=== PATIENT | female | born 1995 | race Caucasian/White ===

== ENCOUNTER 2016-07-24 17:57 | Emergency (ER) | payer SELFPAY ==
[~2016-07-24] VITALS: Ht 170.2 cm; Wt 67.7 kg
[2016-07-24 18:27] VITALS: BP 107/66; PULSE 90; RESP 18; TEMP 99.1; O2SAT 100
[2016-07-24] MEDS ORDERED: IBUPROFEN 800 MG TAB PO ONE (19:30)
--- NOTE | 2016-07-24 19:30 | PD ---
HPI Chief Complaint: ENT Complaint Time Seen by Provider: 19:25 Travel History International Travel<30 days: No Contact w/Intl Traveler<30days: No Traveled to known affect area: No History of Present Illness HPI Patient is a 21-year-old female chief sore throat. Present for 2 days. Pain with swallowing but denies inability to swallow or clear secretions. No difficulty breathing or dyspnea. She's had a slight dry cough and nasal congestion as well. She is has a frontal headache. Ibuprofen has helped. MAXIMUM TEMPERATURE yesterday was 101.0 Fahrenheit which responded to ibuprofen. She has not taken any antipyretics today. She denies any neck pain or stiffness. She denies any abdominal pain. Cough is dry and nonproductive. She denies wheezing. She denies current . She has been fatigued and endorses myalgias, did not receive influenza vaccine this year. PFSH Past Medical History Hx Anticoagulant Therapy: No Asthma: Yes Cardiovascular Problems: No Chemotherapy: No Cerebrovascular Accident: No Diabetes: No Diminished Hearing: No Respiratory: No Integumentary: Yes Immunizations Current: Yes Tetanus Vaccination: > 5 Years Influenza Vaccination: No ?: Not LMP: 07-09-16 : 0 Past Surgical History Surgical History: No Previous Surgery Hysterectomy: No Social History Alcohol Use: Yes (QOD) Tobacco Use: Yes (1/2) Substance Use: No Allergies-Medications (Allergen,Severity, Reaction): Coded Allergies: No Known Allergies (Verified , 07/24/16) Reported Meds & Prescriptions Reported Meds & Active Scripts Active Tessalon Perles (Benzonatate) 100 Mg Cap 100-200 Mg PO TID PRN Magic Mouthwash Pediatric/Adult Liq (Lidocaine/Diphenhydr/Alum/Mg/Simeth) 60 Ml Susp 5-10 Ml SWISH-SPIT ACHS PRN Please makes 40 mL each: 2% viscous lidocaine, liquid diphenhydramine and Maalox liquid Review of Systems Except as stated in HPI: all other systems reviewed are Neg Physical Exam Narrative GENERAL: Well-developed and well-nourished adult female in no acute distress. Nontoxic appearing. SKIN: Warm and dry. Good turgor without tenting. HEAD: Normocephalic and atraumatic. EYES: PERRL bilaterally, 5mm. EOMI bilaterally. No injection or icterus present. No proptosis. Lids without edema or erythema. ENT: Bilateral ear canals are non-edematous/non-erythematous without otorrhea. Bilateral TMs have intact landmarks and without distortion, perforation, air- fluid level or erythema. Nasal mucosa erythematous and edematous without discharge, septum intact and midline. Buccal mucosa pink and moist. Oropharynx reveals bilateral 2+ tonsillar hypertrophy with erythema and exudate. No masses , edema, asymmetry or petechiae. Uvula without edema, midline and airway patent. NECK: Supple, no nasal signs. Trachea midline, no JVD. Multiple small bilateral anterior and posterior cervical lymphadenopathy, mobile and tender. All subcentimeter. No masses or induration palpated. CARDIOVASCULAR: Regular rate and rhythm without murmurs, rubs, clicks or gallops. Radial and posterior tibial pulses 2+ bilaterally. No pedal edema. RESPIRATORY: Clear to auscultation bilaterally with symmetrical rise and fall, no distress or use of accessory muscles. Speaks in full sentences. No stridor , tripoding or drooling. GASTROINTESTINAL: Non-tender, non-distended. No discoloration. Normal bowel sounds all 4 quadrants. No masses or organomegaly present. No change in percussion note in the left mid axillary line with deep inspiration. MUSCULOSKELETAL: No gait disturbances. Patient freely moving all four extremities spontaneously. Extremities without clubbing, cyanosis, or edema. No obvious deformities. NEUROLOGIC: CN II-XII grossly intact. Awake and alert. Motor grossly within normal limits. Normal speech. PSYCHIATRIC: Appropriate mood and affect; insight and judgment normal. Data Data Last Documented VS Vital Signs Date Time Temp Pulse Resp B/P Pulse Ox O2 Delivery O2 Flow Rate FiO2 07/24/16 18:27 99.1 90 18 107/66 100 Orders Group A Rapid Strep Screen (07/24/16 19:24) Influenzae A/B Antigen (07/24/16 19:24) Ibuprofen (Motrin) (07/24/16 19:30) Strep Culture (Group A) (07/24/16 19:25) MDM Medical Decision Making Medical Screen Exam Complete: Yes Emergency Medical Condition: Yes Interpretation(s) Date/Time Procedure Status Source Growth 07/24/16 19:25 Group A Streptococcus Screen (ANOOP) - Final Complete Throat 07/24/16 19:25 Influenza Types A,B Antigen (ANOOP) - Final Complete Nasal Washing NEGATIVE FOR FLU A AND B ANTIGEN.... 07/24/16 19:25 Group A Streptococcus Screen Received Throat Pending Differential Diagnosis Viral pharyngitis versus strep pharyngitis versus mononucleosis versus viral syndrome Narrative Course Patient is an otherwise healthy 21-year-old female who is afebrile and nontoxic- appearing with sore throat, nasal congestion, dry cough, myalgias and frontal headache for 2 days. She reports fever yesterday but none today despite not taking antipyretics. She has a mild headache but there are no signs of meningitis or encephalitis. She endorses fatigue, no palpable splint or hepatomegaly. She is evidence of mental status on exam. Patient given ibuprofen 800 mg for her headache which helped. Rapid strep and flu negative. Patient will be given prescription for Magic mouthwash and Tessalon Perles and a work note. Recommend hydration and rest. Patient was cautioned on exertion and trauma to abdomen and chest wall as she has risk for mononucleosis given her age and viral pharyngitis. As symptoms have been present for a short time seroconversion would likely not have occurred and thus testing is a very limited value. Recommend follow-up with PCP in one to 2 days.See discharge paperwork for further instructions. The plan was discussed with the patient who acknowledged their understanding and agreement. Reinforced the follow-up with primary care is critically important. Patient instructed on emergent conditions that should prompt return to ED. Diagnosis Primary Impression: Acute viral pharyngitis Patient Instructions: General Instructions, Pharyngitis (ED), Viral Syndrome ( ED) Departure Forms: Tests/Procedures, Work Release Enter return to work date: Jul 26, 2016 Additional Instructions: Use Tylenol or ibuprofen as needed for pain, fever and headache Warm salt water gargles hourly as needed Take medications as prescribed Recommend she call to fluids and stay well-hydrated Recommend rest and avoid overexertion Recommend avoiding activities which could result in trauma or injury to the abdomen or chest Follow-up with PCP in 1-2 days Return to the ED for any acute worsening of symptoms. Med/Other Pt SpecificInfo: Prescription(s) given Scripts Benzonatate (Tessalon Perles)100 Mg [id number] Mg PO TID PRN (COUGH) #20 CAP Prov:Kye Ramirez MD 07/24/16 Iwwufwzbcxpvkfr-Ajxakqkfy-Smh-Alum-Simeth Liq (Magic Mouthwash Pediatric/Adult Liq)60 Ml Susp5-10 Ml SWISH-SPIT ACHS PRN (SORE THROAT) #120 ML Please makes 40 mL each: 2% viscous lidocaine, liquid diphenhydramine and Maalox liquid Prov:Kye Ramirez MD 07/24/16 Disposition: 01 DISCHARGE HOME Condition: Stable Pavan Thompson III Jul 24, 2016 19:30
[2016-07-24] MEDS ORDERED: BENZ100 PO (19:54)
[2016-07-24] MEDS ORDERED: MAGICPED SWISH-SPIT (19:54)
== END 2016-07-24 20:10 | disposition home or self-care (01) ==
LOC: PHED 17:57 → PHEFT 20:10
DX: J02.8 Acute pharyngitis due to other specified organisms (principal); F17.210 Nicotine dependence, cigarettes, uncomplicated
CPT/HCPCS: 87081; 87804; 87880; 99284